=== PATIENT | female | born 1960 | race Caucasian/White ===

== ENCOUNTER 2016-08-28 01:05 | Emergency (ER) | payer OTHER ==
[2016-08-28] MEDS ORDERED: HYDROcodone/Acetaminophen 10/325 mg Tablet ONE (02:32)
[2016-08-28] MEDS ORDERED: Benzonatate 100 MG CAP ONE (02:32)
[2016-08-28] MEDS ORDERED: Naproxen 500 MG TAB ONE (02:32)
[2016-08-28] MEDS ORDERED: Benzonatate 100 MG CAP PO SCH (02:45)
[2016-08-28] MEDS ORDERED: Naproxen 500 MG TAB PO SCH (02:45)
[2016-08-28 02:56] LABS: #Basophils 0.1 thou/uL (0.0-0.2); #Eosinphils 1.2 thou/uL (0.0-0.7); #Lymphocytes 2.3 thou/uL (1.20-3.40); #Monocytes 0.7 thou/uL (0.11-0.59); #Neutrophils 9.3 thou/uL (1.40-6.50); %Eosinophils 8.5 % (0.0-10.0); %Lymphocytes 17.1 % (21.0-51.0); %Monocytes 5.2 % (0.0-10.0); %Neutrophils 68.3 % (42.0-75.0); Mean Corpuscular Volume 91.5 fl (81.0-99.0); Platelet Count 270 thou/uL (130-400); RBC Distribution Width 11.8 % (11.5-14.5); Red Blood Cell (RBC) Count 4.67 mill/uL (4.20-5.40); White Blood Cell (WBC) Count 13.6 thou/uL (4.8-10.8)
[2016-08-28] MEDS ORDERED: AMOXicillin 250 MG CAP ONE (03:12)
--- NOTE | 2016-08-28 10:25 | RAD ---
CHEST PA AND LATERAL: Date: 08/28/16 HISTORY: 56-year-old female with cough. FINDINGS/IMPRESSION: Heart size is within normal limits. The lungs are clear. No pneumonia, edema, pleural effusion, or o ther acute process. POS: [facility]
== END 2016-08-28 03:19 | disposition home or self-care (01) ==
LOC: MADERS 01:05
DX: J20.9 Acute bronchitis, unspecified (principal); Z79.899 Other long term (current) drug therapy; Z79.4 Long term (current) use of insulin; E78.5 Hyperlipidemia, unspecified; E11.40 Type 2 diabetes mellitus with diabetic neuropathy, unspecified
CPT/HCPCS: 36415; 71020; 85025; 87081; 87430

== ENCOUNTER 2019-10-25 02:44 | Emergency (ER) | payer OTHER ==
[2019-10-25] MEDS ORDERED: Acetaminophen 325 MG Suppository ONE (03:31)
[2019-10-25 03:34] LABS: Bilirubin Negative (Negative); Blood, Urine Moderate (Negative); Clarity Clear (Clear); Glucose, Urine (Dipstick) >=1000 mg/dL (Negative); Ketone, Urine 40 mg/dL (Negative); Leukocyte Negative (Negative); Nitrite Negative (Negative); Protein, Urine (Dipstick) 100 mg/dL (Neg-Trace); Urobilinogen 0.2 mg/dL (Less than 2)
[2019-10-25 03:35] LABS: Bacteria/HPF None Seen HPF (None Seen); Mucous/LPF Rare LPF (<2+); Squamous Epithelial 0-3 HPF (0-3); WBC/HPF None Seen HPF (0-3)
[2019-10-25 03:56] LABS: Hemoglobin 13.5 g/dL (12.0-16.0); Mean Corpuscular HGB CONC 33.5 g/dL (32.0-36.0); Mean Corpuscular Hemoglobin 30.9 pg (27.0-31.0); Mean Corpuscular Volume 92.2 fL (78.0-98.0); Mean Platelet Volume 7.1 fL (7.4-10.4); Platelet Count 236 thou/uL (130-400); RBC Distribution Width 12.5 % (11.5-14.5); Red Blood Cell (RBC) Count 4.38 mill/uL (4.20-5.40)
[2019-10-25] MEDS ORDERED: Cefepime 2 GM VIAL ONE (03:58)
[2019-10-25] MEDS ORDERED: Sodium Chloride 0.9% 100 ML ONE (03:58)
[2019-10-25 04:08] LABS: Band 18 % (5-11); Lymphocytes 6 % (21-51); MDiff Complete? YES; Metamyelocyte 1 % (0-0); Monocytes 5 % (0-10); Neutrophil 70 % (42-75); Platelet Morphology Comment Appears Adequate; RBC Morphology Normal; Toxic Granulation SLIGHT
[2019-10-25 04:09] LABS: ALT (SGPT) 34 U/L (8-55); AST (SGOT) 26 U/L (5-34); Albumin 3.5 g/dL (3.5-5.0); Alkaline Phosphatase 121 U/L (40-110); Anion Gap 16 mmol/L (10-20); BUN (Urea Nitrogen) 21 mg/dL (9.8-20.1); Bilirubin, Total 0.7 mg/dL (0.2-1.2); Calc. Creatinine Clearance 0 mL/min (70-130); Calcium 8.6 mg/dL (7.8-10.44); Carbon Dioxide 20 mmol/L (22-29); Chloride 103 mmol/L (98-107); Estimated GFR-MDRD 48; Globulin 3.1 g/dL (2.4-3.5); Glucose 165 mg/dL (70-105); Protein, Total 6.6 g/dL (6.0-8.3); Sodium 135 mmol/L (136-145)
[2019-10-25] MEDS ORDERED: Sodium Chloride 0.9% 1,000 ML ONE ×2 (05:06→06:09)
[2019-10-25] MEDS ORDERED: metroNIDAZOLE 500 MG/100 ML BAG ONE (05:06)
[2019-10-25] MEDS ORDERED: Ibuprofen 800 MG TAB ONE (05:34)
[2019-10-25] MEDS ORDERED: Dextrose 5% in Water 500 ML ONE (06:09)
[2019-10-25] MEDS ORDERED: Sodium Chloride 0.9% 1,000 ML BAG ONE (06:28)
--- NOTE | 2019-10-25 06:57 | RAD ---
RADIOGRAPH CHEST 1 VIEW: DATE: 10/25/2019 TIME: 4:55 AM HISTORY: 59-year-old female with fever COMPARISON: 08/28/2016 FINDINGS: There is a new finding of diffuse coarse interstitial infiltrates throughout all lung elizalde. No card iomegaly. No blunting of lateral costophrenic angles. No pneumothorax. IMPRESSION: Diffuse interstitial infiltrates, apparently acute.
== END 2019-10-25 06:28 | disposition short-term general hospital (02) ==
LOC: MADERS 02:44
DX: A41.9 Sepsis, unspecified organism (principal); R65.21 Severe sepsis with septic shock; E11.621 Type 2 diabetes mellitus with foot ulcer; L97.519 Non-pressure chronic ulcer of other part of right foot with unspecified severity; L97.819 Non-pressure chronic ulcer of other part of right lower leg with unspecified severity; E11.40 Type 2 diabetes mellitus with diabetic neuropathy, unspecified; K21.9 Gastro-esophageal reflux disease without esophagitis; E78.5 Hyperlipidemia, unspecified; E78.00 Pure hypercholesterolemia, unspecified; M19.90 Unspecified osteoarthritis, unspecified site; F17.210 Nicotine dependence, cigarettes, uncomplicated; Z79.899 Other long term (current) drug therapy; Z79.4 Long term (current) use of insulin
CPT/HCPCS: 51701; 71045; 80053; 81003; 81015; 83605; 84484; 85025; 87040; 87086; 96365; 96367; 96375; J0692; J3370; J3490; J7050; J7070

== ENCOUNTER 2024-02-17 04:37 | Emergency (ER) | payer OTHER ==
[2024-02-17] MEDS ORDERED: traMADol HCl 50 MG TAB ONE (05:58)
== END 2024-02-17 08:39 | disposition home or self-care (01) ==
LOC: MADERS 04:37
DX: S91.302A Unspecified open wound, left foot, initial encounter (principal); M21.42 Flat foot [pes planus] (acquired), left foot; E11.9 Type 2 diabetes mellitus without complications; E78.00 Pure hypercholesterolemia, unspecified; F17.210 Nicotine dependence, cigarettes, uncomplicated; Z79.82 Long term (current) use of aspirin; Z79.4 Long term (current) use of insulin; Z79.899 Other long term (current) drug therapy
CPT/HCPCS: 99283